=== PATIENT | male | born 1970 | race Caucasian/White ===

== ENCOUNTER 2017-02-19 01:13 | Inpatient (IN) | payer OTHER ==
[~2017-02-19] VITALS: Ht 167.6 cm; Wt 87.5 kg
[2017-02-19] MEDS ORDERED: LABETALOL 5MG/ML, 20ML IVPush ONE (01:30)
[2017-02-19] MEDS ORDERED: ASPIRIN 81 MG TABLET CHEW PO ONE (01:30)
[2017-02-19] MEDS ORDERED: SODIUM CHLORIDE FLUSH 10ML SYR IVF ONE (01:30)
[2017-02-19] MEDS ORDERED: NITROGLYCERIN OINT 2%, 1GM TP ONE ×2 (01:30→01:33)
[2017-02-19] MEDS ORDERED: MORPHINE SULFATE 4 MG/ML, 1ML ONE ×2 (01:32→02:02)
[2017-02-19] MEDS: MORPHINE SULFATE 4 MG/ML, 1ML IVPush PRN ×2 (01:36→02:03)
[2017-02-19 01:59] LABS: ASPARTATE AMINO TRANSFERASE 16 U/L (15-37); BLOOD UREA NITROGEN 9 mg/dL (7-18)
[2017-02-19] MEDS ORDERED: PLEASE ENTER ALLERGIES MC SCH ×2 (02:00)
[2017-02-19 02:06] LABS: IS PT STATUS REG ER OR PRE ER? YES
[2017-02-19] MEDS ORDERED: NITROGLYCERIN/D5W PMX 250 ML IV SCH (02:07)
[2017-02-19] MEDS ORDERED: NITROGLYCERIN/D5W PMX 250 ML ONE (02:20)
[2017-02-19] MEDS ORDERED: OMNIPAQUE 350 MG/ML, 100ML BOTTLE ONE (03:00)
[2017-02-19] MEDS ORDERED: HEPARIN 25,000 UNITS/500ML PMX 500 ML IV PRN ×2 (03:30→04:00)
[2017-02-19] MEDS ORDERED: HEPARIN 5,000 UNITS/ML, 1ML IV PRN ×2 (03:30→04:00)
[2017-02-19] MEDS ORDERED: HEPARIN 5,000 UNITS/ML, 1ML IV ONE ×2 (03:30→04:00)
[2017-02-19] MEDS ORDERED: HEPARIN 25,000 UNITS/500ML PMX 500 ML ONE (03:38)
[2017-02-19] MEDS ORDERED: HEPARIN 5,000 UNITS/ML, 1ML ONE (03:56)
[2017-02-19] MEDS ORDERED: NITROGLYCERIN/D5W PMX 250 ML IV PRN (05:00)
[2017-02-19] MEDS ORDERED: POTASSIUM CHLORIDE 40 MEQ in SODIUM CHLORIDE 0.9% 500 ML IV ONE (05:00)
[2017-02-19] MEDS ORDERED: ONDANSETRON 2MG/ML, 2ML IVP PRN (05:00)
[2017-02-19 05:45] LABS: BLOOD UREA NITROGEN 8 mg/dL (7-18)
[2017-02-19] MEDS: LISINOPRIL 10 MG TABLET PO SCH ×2 (09:00→21:04)
[2017-02-19] MEDS ORDERED: POTASSIUM CHLORIDE 20 MEQ TAB.ER.PRT PO ONE (10:00)
[2017-02-19 10:24] LABS: IS PT STATUS REG ER OR PRE ER? NO
[2017-02-19] MEDS ORDERED: MIDAZOLAM 1 MG/ML, 5ML ONE (13:01)
[2017-02-19] MEDS ORDERED: VERAPAMIL 2.5 MG/ML, 2ML ONE (13:02)
[2017-02-19] MEDS ORDERED: LIDOCAINE 2%, 20ML ONE (13:02)
[2017-02-19] MEDS ORDERED: NITROGLYCERIN 5 MG/ML, 10ML ONE (13:02)
[2017-02-19] MEDS ORDERED: TICAGRELOR 90 MG TABLET ONE (13:02)
[2017-02-19] MEDS ORDERED: FENTANYL PF 100 MCG/2ML ONE (13:02)
[2017-02-19] MEDS ORDERED: HEPARIN 1,000 UNITS/ML, 10ML ONE (13:02)
[2017-02-19] MEDS ORDERED: BIVALIRUDIN 250 MG ONE (13:02)
[2017-02-19] MEDS ORDERED: PRASUGREL 10 MG TABLET ONE (13:33)
[2017-02-19] MEDS ORDERED: BIVALIRUDIN 250 MG in DEXTROSE 5% 50 ML IV SCH (13:45)
[2017-02-19 14:59] LABS: IS PT STATUS REG ER OR PRE ER? NO
[2017-02-19 17:18] VITALS: BP 118/83
[2017-02-19 19:05] VITALS: BP 118/78
[2017-02-19 20:48] LABS: IS PT STATUS REG ER OR PRE ER? NO
[2017-02-19] MEDS: ATORVASTATIN 40 MG TABLET PO SCH (21:04)
[2017-02-20 03:30] VITALS: BP 109/75
[2017-02-20 06:17] LABS: ASPARTATE AMINO TRANSFERASE 172 U/L (15-37); BLOOD UREA NITROGEN 7 mg/dL (7-18)
[2017-02-20 07:18] VITALS: BP 126/85
[2017-02-20] MEDS: PRASUGREL 10 MG TABLET PO SCH (09:35)
[2017-02-20] MEDS: LISINOPRIL 10 MG TABLET PO SCH ×2 (09:35→20:55)
[2017-02-20] MEDS ORDERED: ACETAMINOPHEN 325 MG TABLET PO PRN (10:00)
[2017-02-20] MEDS: ASPIRIN 81 MG TABLET EC PO SCH (10:55)
[2017-02-20] MEDS: METOPROLOL SUCCINATE 25 MG TAB.ER.24H PO SCH (10:55)
[2017-02-20 13:26] VITALS: BP 99/64
[2017-02-20 20:53] VITALS: BP 104/72
[2017-02-20] MEDS: ATORVASTATIN 40 MG TABLET PO SCH (20:55)
[2017-02-21 03:15] VITALS: BP 99/59
[2017-02-21] MEDS: ASPIRIN 81 MG TABLET EC PO SCH (05:35)
[2017-02-21] MEDS: METOPROLOL SUCCINATE 25 MG TAB.ER.24H PO SCH (05:35)
[2017-02-21 05:36] VITALS: BP 103/69
[2017-02-21 06:38] LABS: ASPARTATE AMINO TRANSFERASE 68 U/L (15-37); BLOOD UREA NITROGEN 12 mg/dL (7-18)
[2017-02-21 06:55] VITALS: BP 97/67
[2017-02-21] MEDS: PRASUGREL 10 MG TABLET PO SCH (08:55)
[2017-02-21] MEDS: LISINOPRIL 10 MG TABLET PO SCH (09:00)
[2017-02-21] MEDS ORDERED: METO25TA91 PO (09:02)
[2017-02-21] MEDS ORDERED: LISI-167 PO (09:02)
[2017-02-21] MEDS ORDERED: ASPI-621 PO (09:02)
[2017-02-21] MEDS ORDERED: ATOR40TA78 PO (09:02)
[2017-02-21] MEDS ORDERED: PRAS10TA4 PO (09:02)
== END 2017-02-21 10:42 | DRG 249 ==
LOC: ED 01:32 → EDIP 03:04 → CCU 07:26 → 5SO 17:12
PROVIDERS: ADMIT Internal Medicine; ATTEND Internal Medicine
PROC: 02703DZ Dilation of Coronary Artery, One Artery with Intraluminal Device, Percutaneous Approach (ICD-10-PCS; principal; 2017-02-19)
PROC: 4A023N7 Measurement of Cardiac Sampling and Pressure, Left Heart, Percutaneous Approach (ICD-10-PCS; 2017-02-19)
PROC: B2111ZZ Fluoroscopy of Multiple Coronary Arteries using Low Osmolar Contrast (ICD-10-PCS; 2017-02-19)
PROC: B2151ZZ Fluoroscopy of Left Heart using Low Osmolar Contrast (ICD-10-PCS; 2017-02-19)
DX: I21.4 Non-ST elevation (NSTEMI) myocardial infarction (principal); I16.9 Hypertensive crisis, unspecified; E87.6 Hypokalemia; I25.82 Chronic total occlusion of coronary artery; I10 Essential (primary) hypertension; I16.0 Hypertensive urgency; D72.829 Elevated white blood cell count, unspecified; E78.5 Hyperlipidemia, unspecified; I25.10 Atherosclerotic heart disease of native coronary artery without angina pectoris; I25.5 Ischemic cardiomyopathy
CPT/HCPCS: 36415; 71275; 74175; 80048; 80053; 80061; 81003; 83735; 83880; 84443; 84484; 85025; 85520; 87081; 92928; 93005; 93306; 93458; 96374; 96375; C1876; C1894; J0583; J1644; J2250; J3010; J3480; J3490; Q9967; C1725; C1769; C1887; J7040

== ENCOUNTER → 2017-05-09 | Outpatient (CLI) | payer OTHER ==
[~2017-05-09] MED LIST: ASPI-621 PO; ATOR40TA78 PO; LISI-167 PO; METO25TA91 PO; PRAS10TA4 PO
== END | disposition home or self-care (01) ==
LOC: CVU 09:37
PROVIDERS: ATTEND Internal Medicine Cardiovascular Disease
DX: I51.7 Cardiomegaly (principal); I25.10 Atherosclerotic heart disease of native coronary artery without angina pectoris; Z95.5 Presence of coronary angioplasty implant and graft
CPT/HCPCS: 93306

== ENCOUNTER 2017-08-07 06:45 | Observation (INO) | payer OTHER ==
[~2017-08-07] VITALS: Ht 167.6 cm; Wt 73.0 kg
[2017-08-07] MEDS ORDERED: ATROPINE SYRINGE 0.1 MG/ML, 10ML IVPush PRN (07:00)
[2017-08-07] MEDS ORDERED: SODIUM CHLORIDE 0.9% 1,000ML IVBOLUS ONE (07:00)
[2017-08-07] MEDS ORDERED: SODIUM CHLORIDE FLUSH 10ML SYR IVF ONE (07:00)
[2017-08-07 07:21] LABS: HEMATOCRIT 42.2 % (39.2-51.8); HEMOGLOBIN 14.5 g/dL (13.7-18.0)
[2017-08-07] MEDS ORDERED: PLEASE ENTER WEIGHT MC SCH (07:30)
[2017-08-07] MEDS ORDERED: PLEASE ENTER HEIGHT MC SCH (07:30)
[2017-08-07 08:53] LABS: ASPARTATE AMINO TRANSFERASE 12 U/L (15-37); BLOOD UREA NITROGEN 12 mg/dL (7-18)
[2017-08-07 09:00] LABS: IS PT STATUS REG ER OR PRE ER? YES
[2017-08-07] MEDS ORDERED: LISI-170 PO (09:03)
[2017-08-07] MEDS ORDERED: METO25TA35 PO (09:03)
[2017-08-07] MEDS ORDERED: CLOP75TA52 PO (09:03)
[2017-08-07] MEDS ORDERED: ACETAMINOPHEN 325 MG TABLET PO PRN (10:00)
[2017-08-07 10:48] VITALS: BP 121/89
[2017-08-07 13:30] LABS: IS PT STATUS REG ER OR PRE ER? NO
[2017-08-07 15:23] VITALS: BP 113/68
[2017-08-07 19:30] VITALS: BP 125/79
[2017-08-07 19:45] LABS: IS PT STATUS REG ER OR PRE ER? NO
[2017-08-08 02:00] VITALS: BP 117/86
[2017-08-08 06:50] VITALS: BP 106/68
[2017-08-08] MEDS ORDERED: CLOPIDOGREL 75 MG TABLET PO SCH (09:30)
[2017-08-08] MEDS ORDERED: ASPIRIN 81 MG TABLET CHEW PO SCH (09:30)
[2017-08-08] MEDS ORDERED: ATORVASTATIN 40 MG TABLET PO SCH (21:00)
== END 2017-08-08 13:01 | disposition home or self-care (01) ==
LOC: ED 06:51 → INTOOBSV 09:08 → EDIP 09:08 → 5SO 10:32
PROVIDERS: ADMIT Hospitalist; ATTEND Hospitalist
DX: R55 Syncope and collapse (principal); R00.1 Bradycardia, unspecified; I25.10 Atherosclerotic heart disease of native coronary artery without angina pectoris; E78.5 Hyperlipidemia, unspecified; I10 Essential (primary) hypertension; I25.2 Old myocardial infarction; I25.82 Chronic total occlusion of coronary artery; Z87.891 Personal history of nicotine dependence; Z95.5 Presence of coronary angioplasty implant and graft
CPT/HCPCS: 36415; 71010; 80053; 83880; 84443; 84484; 85025; 85610; 85730; 93005; 96360; 96361; 99285; G0378; J7030